=== PATIENT | male | born 1970 | race Caucasian/White ===

== ENCOUNTER 2022-05-09 14:52 | Outpatient (CLI) | payer OTHER, SELFPAY ==
[2022-05-09 22:24] LABS: Albumin* 4.4 g/dL (3.3-5.0); Chloride* 101 mmol/L (96-114); Potassium* 4.2 mmol/L (3.6-5.1); Sodium* 140 mmol/L (135-149)
[2022-05-09 22:26] LABS: Creatinine* 1.4 mg/dL (0.5-1.5); Estimated Glomerular Filt Rate 61 ml/min
[2022-05-09 22:27] LABS: Alanine Aminotransferase* 33 U/L (4-50); Alkaline Phosphatase* 98 U/L (40-150); Aspartate Amino Transferase* 32 U/L (12-35); Bilirubin Total* 0.7 mg/dL (0.1-1.5); Blood Urea Nitrogen* 24 mg/dL (7-30); Calcium* 9.2 mg/dL (8.4-10.6); Carbon Dioxide* 32 mmol/L (20-32); Glucose* 91 mg/dL (60-115); Total Protein* 7.1 g/dL (6.0-8.3)
== END 2022-05-09 14:53 | disposition home or self-care (01) ==
LOC: FRMREF 14:54
PROVIDERS: PCP Family Medicine; Visit Provider Family Medicine
DX: R79.89 Other specified abnormal findings of blood chemistry (principal)
CPT/HCPCS: 80053

== ENCOUNTER 2022-05-14 05:58 | Day surgery (SDC) | payer OTHER, SELFPAY ==
[2022-05-14] VITALS (12 sets, daily range): BP systolic 111–129; BP diastolic 66–92; PULSE 51–75; RESP 14–18; TEMP 36.1–36.6; O2SAT 95–100; BMI 26.6
[2022-05-14] MEDS: SODIUM CHLORIDE 0.9 % (FLUSH) 10 ML SYRINGE IVF (06:20)
[2022-05-14] MEDS: LACTATED RINGERS 1000 ML 1,000 ML 100 ML IV ×2 (06:20→09:00)
--- NOTE | 2022-05-14 06:32 | SUR.PREOP ---
Visualized patient's home covid test, results negative.
[2022-05-14] MEDS: BUPIVACAINE 0.25% 30 ML INJECTION (07:56)
--- NOTE | 2022-05-14 09:43 | W.ANESCHARGE ---
Anesthesia Charges Start Date/Time Anesthesia Start Date: 05/14/22 Anesthesia Start Time: 07:35 Stop Date/Time Anesthesia Stop Date: 05/14/22 Anesthesia Stop Time: 09:45 Summary Emergency: No
--- NOTE | 2022-05-14 09:54 | W.ANESCHARGE ---
Anesthesia Charges Start Date/Time Anesthesia Start Date: 05/14/22 Anesthesia Start Time: 07:35 Stop Date/Time Anesthesia Stop Date: 05/14/22 Anesthesia Stop Time: 09:45 Summary Emergency: No
--- NOTE | 2022-05-14 11:07 | PM.GSPRC ---
Operative Note Date of procedure: 05/14/22 Type of Procedure: 1. Laparoscopic bilateral inguinal hernia repair with mesh. 2. Open umbilical hernia repair with mesh. Procedure Description: After discussing the risks and benefits of the procedure, the patient signed informed consent.? The operative site was marked and the patient was brought to the operating room and placed on the operating table in supine position.? Care was taken to pad the patient's pressure points.?? The patient was then intubated by anesthesia.?? The operative site was then prepped and draped in the usual sterile fashion.? A time-out was then performed. An infraumbilical skin incision was made with a scalpel and subcutaneous tissues were dissected with electrocautery. Anterior sheath was incised with electrocautery and rectus muscle was retracted laterally. A 12 mm spacemaker dissector system was introduced into the incision and advanced over the posterior sheath. Preperitoneal space was dissected with manually insufflating air under direct visualization. Once the tissues were dissected, the balloon was deflated and removed.? A laparoscopic balloon was placed into preperitoneal space and balloon was inflated. Preperitoneal space was insufflated with air. No bleeding was identified upon examination of preperitoneal space. We then placed two 5 mm ports suprapubically under direct visualization. ? I first started on the right side. The preperitoneal tissues were bluntly dissected with graspers.? The pubic bone was identified and? cleared from preperitoneal tissue.?? Inferior epigastrics on right?side were retracted towards the abdominal wall.?? Spermatic cord? was identified and dissected circumferentially.? This was done bluntly. The direct hernia space was identified. No preperitoneal structures were incarcerated in the space. There was also evidence of indirect hernia as well. The indirect hernia sac was then dissected off spermatic cord bluntly. I then proceeded on the left side. Preperitoneal tissues on the left side were dissected bluntly as well. The left inferior epigastrics were retracted towards the abdominal wall. The left spermatic cord was skeletonized bluntly with graspers. There was a small direct hernia space noted. There was no evidence of indirect hernia. The peritoneal edge was noted and was dissected away from the spermatic cord bluntly. A small opening was created in the peritoneum. Sigmoid colon was visualized through this opening. The opening was closed with 5 mm clips. When adequate space was developed for mesh placement, a left sided Dextile mesh was used and positioned around the spermatic cord. The mesh was tacked medially and laterally with?tacks. Similarly a right-sided Parietex mesh was then inserted into the preperitoneal space. The mesh was positioned around the right spermatic cord. It was tacked with tacks laterally and medially.? Additional local anesthetic was injected directly into pre-peritoneal space. ? The space was deflated under direct visualization and mesh appeared to be still lying in a good position. The ports were then removed. Anterior sheath was then closed with a running 0-0 vicryl suture. I then proceeded with an open umbilical hernia repair. The umbilicus was mobilized off anterior fascia with cautery. The fascial defect was approximately 1.5 cm. The fascia was grasped with Dejuan clamps, and preperitoneal space was developed for mesh placement. This was done with cautery circumferentially. The umbilical hernia was then repaired with a small Ventralex ST mesh patch. The mesh was secured in preperitoneal space with interrupted 0-0 Nurolon stitches. The tails of the mesh were cut and removed. The anterior fascia was closed over the mesh with a running 2-0 Vicryl suture. The umbilicus was tacked to the fascia with interrupted 3-0 Vicryl sutures. The dermis was reapproximated with interrupted 3-0 Vicryl sutures. The skin of all incisions was closed with a running 4-0 Monocryl stitch. Steri strips were applied over the laparoscopic?incisions. Steri-Strips were also applied over the infraumbilical incision. 2 x 2 and 4 x 4 gauze was placed over the umbilicus and it was secured with tape. ? All counts were correct at the end of the case. Patient tolerated the procedure well and was transferred to PACU without any complications. Findings: Bilateral inguinal hernias and umbilical hernia were all repaired with mesh. Anesthesia: GETA Surgeon: Bhanu Parham MD Estimated blood loss (mL): 5 Condition: stable Disposition: PACU
== END 2022-05-14 11:01 | disposition home or self-care (01) ==
PROVIDERS: PCP Family Medicine; Visit Provider Surgery
PROC: (CPT 49650; principal; 2022-05-14 07:30)
PROC: (CPT 49650; 2022-05-14 07:30)
DX: K40.20 Bilateral inguinal hernia, without obstruction or gangrene, not specified as recurrent (principal); K42.9 Umbilical hernia without obstruction or gangrene
CPT/HCPCS: 49650; 49585; 00830; 00860; C1781; J1100; J2250; J2405; J2704; J2710; J3010; J3490; J7120

== ENCOUNTER 2022-12-23 09:29 | Outpatient (CLI) | payer OTHER, SELFPAY | END 2022-12-23 09:30 | disposition home or self-care (01) | LOC: NFLDREF 16:32 | PROVIDERS: PCP Physician Assistant Medical; Referring Provider Physician Assistant Medical; Visit Provider Physician Assistant Medical | DX: I10 Essential (primary) hypertension (principal); E55.9 Vitamin D deficiency, unspecified; Z79.899 Other long term (current) drug therapy | CPT/HCPCS: 82306 ==

== ENCOUNTER 2023-02-18 08:38 | Outpatient (CLI) | payer OTHER, SELFPAY | END 2023-02-18 08:39 | disposition home or self-care (01) | LOC: NFLDREF 02-19 11:10 | PROVIDERS: PCP Physician Assistant Medical; Referring Provider Physician Assistant Medical; Visit Provider Internal Medicine Nephrology | DX: N18.9 Chronic kidney disease, unspecified (principal); I10 Essential (primary) hypertension; R79.89 Other specified abnormal findings of blood chemistry | CPT/HCPCS: 80069; 82043; 82570; 82610 ==

== ENCOUNTER 2023-03-03 07:00 | Outpatient (CLI) | payer OTHER, SELFPAY ==
--- NOTE | 2023-03-03 07:15 | CRLHL7_ITS ---
For Patients: As a result of the Century Cures Act, medical imaging exams and procedure reports are released immediately into your electronic medical record. You may view this report before your referring provider. If you have questions, please contact your health care provider. CLINICAL HISTORY: Chronic kidney disease COMPARISON: none TECHNIQUE: Powell scale and color Doppler images were acquired of the kidneys. FINDINGS: Sonographic images reveal a symmetric appearance of the kidneys. There is no evidence of hydronephrosis, mass or calculus. The right kidney measures 9.9cm in length and the left kidney measures 9.9cm in length. The renal cortex measures 1.3 cm on the right and 1.5 cm on the left. Normal color Doppler imaging of both kidneys. IMPRESSION: Normal renal ultrasound. Dictated by Kali Mcgraw MD @ 03/03/2023 8:25:14 AM (Electronically Signed)
== END 2023-03-03 07:01 | disposition home or self-care (01) ==
LOC: US 07:01
PROVIDERS: PCP Physician Assistant Medical; Visit Provider Internal Medicine Nephrology
DX: N18.9 Chronic kidney disease, unspecified (principal)
CPT/HCPCS: 76775

== ENCOUNTER 2023-08-05 09:17 | Outpatient (CLI) | payer OTHER, SELFPAY | END 2023-08-05 09:18 | disposition home or self-care (01) | PROVIDERS: PCP Physician Assistant Medical; Visit Provider Physician Assistant Medical | DX: I10 Essential (primary) hypertension (principal); N18.9 Chronic kidney disease, unspecified; R79.89 Other specified abnormal findings of blood chemistry | CPT/HCPCS: 80053; 80061; 82306; 84443; G0103 ==